=== PATIENT | female | born 1960 | race Asian ===

== ENCOUNTER → 2019-10-14 | Outpatient (CLI) | payer BC ==
[~2019-10-14] VITALS: Ht 160 cm; Wt 73.0 kg
[2019-10-14 08:59] VITALS: BP 141/77
--- NOTE | 2019-10-14 09:18 | NUR ---
Pain Clinic Assessment: 1. History of Osteoarthritis: Not Applicable History of Rheumatoid Arthritis: Not Applicable 2. Height: 5 ft. 3 in. 160.0 cm. Weight: 161.0 lb. oz. 73.029 kg. Patient's BMI: 28.5 3. Vital Signs: BP: 141/77 Pulse: 64 Resp: 16 Temp: 02 Sat: 99 ECG Mon: 4. Pain Intensity: 0-CURRENTLY 5. Fall Risk: Dizziness: N Needs help standing or walking: N Fallen in the last 3 months: N Fall risk comments: 6. Patient on Blood Thinner: None 7. History of Hypertension: N 8. Opioid Therapy greater than 6 weeks: N Opiate Contract Signed: 9. Risk Assessment Tool Provided: O-LOW 10. Functional Assessment Tool: 11. Recreational Drug Use: Never Drug Type: Tobacco Use: Never Smoker Tobacco Type: Amount or Packs/day: How Many Years: Alcohol Use: Yes Frequency: Special Occasions Quant:
--- NOTE | 2019-10-29 14:46 | HPC ---
[facility] [place] [address] PAIN MANAGEMENT CONSULTATION Name: MADY PATEL Room #: REG JODIE Arambula#: [id number] Admission: 10/14/19 Attend Phys: Neelima Tolliver MD Discharge: Date of : 64 Report #: [id number] THIS REPORT FOR: cc: Rodney Kenney II, MD, II,Rodney Tolliver,Neelima Ladd MD ~ CC: Rodney Tolliver DATE OF SERVICE: 10/28/2019 CHIEF COMPLAINT: Neck pain and pain down into the arm. HISTORY: The patient is a 59-year-old female who has been noticing pain and discomfort, which has increased over the last few weeks. Over the past 3 weeks, she has noted increased discomfort in her arm with pain radiating down to the right side. She noticed some numbness and tingling involving her fingers. She notes that her fingers are somewhat weaker. There is numbness and tingling, particularly in the middle finger. She has had some pain in her right shoulder and into the forearm area. She was playing tennis. Pain is worse with that activity. She notes working on a computer is problematic. This episode started after playing tennis. ALLERGIES: ALDACTONE. CURRENT MEDICATIONS: The patient is not taking any medications at this juncture. PAST MEDICAL HISTORY: Generally unremarkable. PAST SURGICAL HISTORY: 1. Cholecystectomy, sphincter of Oddi surgery. 2. Kidney stone. 3. Tubal ligation. 4. Tummy tuck and breast lift. 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 LABORATORY DATA: MRI of the cervical spine reveals right-sided 4 mm size oval herniated disk. The disk indents the anterior thecal aspect of the thecal sac and touching the spinal cord and minimally encroaches on the right side lateral recess and neural foramen. X-ray of the thoracic spine dated, 02/20/2018 unremarkable. REVIEW OF SYSTEMS: Questionnaire in the chart generally good health, otherwise [facility] [address] [place] [address] PAIN MANAGEMENT CONSULTATION Name: MADY PATEL Room #: REG [facility].#: [id number] Admission: 10/14/19 Attend Phys: Neelima Tolliver MD Discharge: Date of : 64 Report #: [id number] unremarkable except for numbness and tingling in the right arm. PAIN CLINIC ASSESSMENT AND PQRS: 1. History of osteoarthritis. The patient is not being treated for osteoarthritis. She is not being treated for rheumatoid arthritis. 2. Height 5 feet 3 inches, weight 162 pounds, BMI is 28.8. 3. Vital Signs: Blood pressure 138/98, pulse 75, respiratory rate is 18, room air saturation 98%. 4. Pain intensity 10. 5. Fall history: The patient has not fallen in the last 3 months. 6. Blood thinner. The patient is not on a blood thinning medication. 7. Hypertension. The patient is not being treated for hypertension. 8. Opioids greater than 6 weeks. The patient is not on an opioid regimen. 9. Risk assessment tool, low for opioid use. 10. Functional assessment tool . 11. Recreational drug use. The patient denies. 12. Tobacco: The patient never smoked. 13. Alcohol: The patient occasionally drinks alcoholic beverages. PHYSICAL EXAMINATION: GENERAL: The patient is a well-developed, well-nourished, Latin female. She appears her stated age. She is alert and oriented x 3. Her affect is appropriate. Speech is fluent. HEENT: Normocephalic, atraumatic. Extraocular eye muscles intact. Sclerae nonicteric. Mucous membranes are moist. The patient is wearing a mask. NECK: The patient has some pain and discomfort in the right shoulder with pain radiating down the arm, forearm and down into the fingers with numbness and tingling. 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 CARDIAC: The patient has regular heart rate. LUNGS: Clear to auscultation. ABDOMEN: Nontender. EXTREMITIES: Lower extremity muscle strength 5/5 for the major muscle groups in the upper extremity. IMPRESSION: Cervical radiculopathy involving the right side in the C5-C6 area with numbness and tingling. RECOMMENDATIONS: We discussed treatment options with the patient. The patient will return to the Pain Clinic for treatment. A model was used to indicate the area of probable pathology. We went in very detailed discussion about the pathophysiology of cervical radiculopathy. The patient will return to the Pain Clinic, at which time she will then undergo a cervical epidural steroid injection. She is thinking about leaving and going out of town in 2 days. She will return to the Pain Clinic, at which time she will undergo a cervical [address] [address] PAIN MANAGEMENT CONSULTATION Name: MADY PATEL Room #: EDUARD Arambula#: [id number] Admission: 10/14/19 Attend Phys: Neelima Tolliver MD Discharge: Date of : 64 Report #: [id number] epidural steroid injection. Risks and benefits were discussed. The patient elects to proceed. <ELECTRONICALLY SIGNED> By: Neelima Tolliver MD 10/29/19 1446 [id number] 1401 Neelima Tolliver MD /[facility]
== END ==
LOC: PAIN 08:00
PROVIDERS: ATTEND Anesthesiology Pain Medicine
DX: M54.12 Radiculopathy, cervical region (principal); R20.2 Paresthesia of skin; Z90.49 Acquired absence of other specified parts of digestive tract; Z98.890 Other specified postprocedural states; Z88.8 Allergy status to other drugs, medicaments and biological substances; Z79.899 Other long term (current) drug therapy

== ENCOUNTER → 2019-10-16 | Outpatient (CLI) | payer BC ==
[~2019-10-16] VITALS: Ht 160 cm; Wt 73.8 kg
[2019-10-16 09:34] VITALS: BP 138/98
--- NOTE | 2019-10-16 09:39 | NUR ---
Pain Clinic Assessment: 1. History of Osteoarthritis: Not Applicable History of Rheumatoid Arthritis: Not Applicable 2. Height: 5 ft. 3 in. 160.0 cm. Weight: 162.8 lb. oz. 73.846 kg. Patient's BMI: 28.8 3. Vital Signs: BP: 138/98 Pulse: 75 Resp: 18 Temp: 02 Sat: 98 ECG Mon: 4. Pain Intensity: 1 5. Fall Risk: Dizziness: N Needs help standing or walking: N Fallen in the last 3 months: N Fall risk comments: 6. Patient on Blood Thinner: None 7. History of Hypertension: N 8. Opioid Therapy greater than 6 weeks: N Opiate Contract Signed: 9. Risk Assessment Tool Provided: O-LOW 10. Functional Assessment Tool: 11. Recreational Drug Use: Never Drug Type: Tobacco Use: Never Smoker Tobacco Type: Amount or Packs/day: How Many Years: Alcohol Use: Yes Frequency: Quant:
--- NOTE | 2019-10-29 14:46 | HPC ---
[facility] [address] [place] [address] PAIN MANAGEMENT CONSULTATION Name: MADY PATEL Room #: REG JODIE LeePeterson#: [id number] Admission: 10/16/19 Attend Phys: Neelima Tolliver MD Discharge: Date of : 64 Report #: [id number] THIS REPORT FOR: cc: Rodney Kenney II, MD, II,Rodney Tolliver,Neelima Ladd MD ~ CC: Rodney Tolliver DATE OF SERVICE: 10/16/2019 CHIEF COMPLAINT: "Pain in the neck, which goes down into my arm." HISTORY: The patient is a 59-year-old female who has been referred to the pain clinic for evaluation of neck and arm pain. She has been experiencing pain, which radiates down into her right shoulder and into her hand with numbness and tingling. She rates the pain as 1 at this juncture. It can rise to a much higher level with activity and movement. Pain is worse when she is playing tennis. Working on the computer is problematic. She has used medications as well as cold applications to her shoulder to help with the pain and discomfort. This pain has been problematic off and on for the last 3 years. About 2 weeks ago, it started after playing tennis. ALLERGIES: ALDACTONE. CURRENT MEDICATIONS: The patient is not taking medications at this juncture. PAIN CLINIC ASSESSMENT AND PQRS: 1. The patient is not being treated for osteoarthritis or rheumatoid arthritis. 2. Height 5 feet 3 inches, weight 162 pounds, BMI is 28.8. 3. Vital signs: Blood pressure 138/98, pulse 75, respiratory rate 18, room air saturation 98%. 4. Pain intensity 1 and can raise to a much higher level with activity. 5. Fall risk. The patient has not fallen in the last 3 months. 6. Blood thinner. The patient is not on a blood thinning medication. 7. Hypertension. The patient is not being treated for hypertension. 8. Opioids greater than 6 weeks. The patient is not on an opioid regimen. 9. Risk assessment tool, low for opioid use. 10. Functional assessment tool . 11. Recreational drug use. The patient denies. 12. Tobacco: The patient has never smoked. 13. Alcohol: The patient occasionally drinks alcoholic beverages. PHYSICAL EXAMINATION: GENERAL: The patient is a well-developed, well-nourished white female. Appears her stated age. She is alert and oriented x 3. Her affect is appropriate. [address] [address] PAIN MANAGEMENT CONSULTATION Name: MADY PATEL [id number] Admission: 10/16/19 Attend Phys: Neelima Tolliver MD Discharge: Date of : 64 Report #: [id number] Speech is fluent. HEENT: Normocephalic, atraumatic. Extraocular eye muscles intact. Sclerae nonicteric. Mucous membranes are moist. NECK: Without adenopathy or JVD. The patient has some pain and discomfort in the right shoulder with pain down the posterior shoulder area and scapula as well as pain down in the arm and forearm. Notes some tingling in her fingers on the right side. HEART: Regular rate. LUNGS: Clear to auscultation. ABDOMEN: Nontender. EXTREMITIES Deep tendon reflexes +1, biceps on the left and right side. Lower extremity muscle strength judged to be 5/5 for the major muscle groups in the lower extremity. Anterior and posterior spring test is negative. Angelo sign is negative. IMPRESSION: Cervical radiculopathy with C5-C6 paracentral 4 mm oval size herniated disk. RECOMMENDATIONS: We discussed treatment options with the patient. Risks and benefits of a cervical epidural steroid injection have been discussed. Possible complications of the procedure, which could include but are not limited to infection, worsening of pain, no improvement in pain, nerve damage, bleeding, headache were discussed. We also discussed COVID-19. This virus is present. Steroid injections can decrease one's immunity. If the patient were to contact the virus she may have a more difficult time that she would have without having undergone a shot. She elects to proceed. PROCEDURE NOTE: The patient was taken to the procedure area. She was then assisted in getting on examination table. A pillow was placed under the shoulders to bolster and improve positioning. Fluoroscopy was used to identify the C7-T1 interspace. A 17-gauge Tuohy with loss of resistance technique was used to gain access to the epidural space. This area had previously been sterilely prepped with a Betadine solution and allowed to dry and infiltrated with a 25-gauge needle with 0.25% bupivacaine to anesthetize it. A total of 120 mg triamcinolone was injected. The patient tolerated the procedure well. There were no complications. Her pain was 0 at the time of discharge. A total of 18 seconds fluoroscopy time was used. We would like to thank you for letting us participate in her care. We hope she continues to improve. The patient states that she is going to go back to [place] within a day or so. She will call us if she has any concerns. <ELECTRONICALLY SIGNED> By: Neelima Tolliver MD 10/29/19 1446 1112 1210 Neelima Tolliver MD /nt
== END | disposition home or self-care (01) ==
LOC: PAIN 06:43
PROVIDERS: ATTEND Anesthesiology Pain Medicine
DX: M50.10 Cervical disc disorder with radiculopathy, unspecified cervical region (principal); G89.29 Other chronic pain; Z88.8 Allergy status to other drugs, medicaments and biological substances